=== PATIENT | male | born 2000 | race Hispanic/Latino ===

== ENCOUNTER 2021-12-02 19:33 | Emergency (ER) | payer OTHER ==
[~2021-12-02] VITALS: Ht 162.6 cm; Wt 68.2 kg
[2021-12-02 21:55] VITALS: BP 112/75
[2021-12-02] MEDS ORDERED: DOXYCYCL HYC100 M4 PO (23:46)
[2021-12-02] MEDS ORDERED: EPSOM SAL1 TOP (23:46)
[2021-12-02] MEDS ORDERED: EMLA CREAM5 GM/TUBE EX (23:47)
== END 2021-12-03 00:15 | disposition home or self-care (01) | DRG 603 ==
LOC: ED 19:33
DX: L03.031 Cellulitis of right toe (principal); F17.200 Nicotine dependence, unspecified, uncomplicated